=== PATIENT | male | born 1980 | race African-American/Black ===

== ENCOUNTER 2020-04-01 13:10 | Emergency (ER) | payer OTHER ==
[~2020-04-01] VITALS: Ht 175.3 cm; Wt 80.0 kg
[~2020-04-01 13:10] MED LIST: CALCIUM CHLORIDE 1GM/10ML SYR IV ONE; EPINEPHRINE 0.1MG/ML (1:10,000) 10ML SYR ONE; SODIUM BICARBONATE 8.4% 1 MEQ/ML 50ML SYR IV ONE
[2020-04-01 13:14] VITALS: BP 0/0
== END 2020-04-01 15:35 | disposition expired ==
LOC: ER 13:19
DX: I46.9 Cardiac arrest, cause unspecified (principal); F20.9 Schizophrenia, unspecified
CPT/HCPCS: 31500; 92950; 99291; J3490